=== PATIENT | male | born 1960 | race Caucasian/White ===

== ENCOUNTER 2023-08-05 09:06 | Outpatient (OUT) | payer MEDICARE, SELFPAY ==
--- NOTE | 2023-08-05 12:14 | CA_ITS ---
Patient: ABHISHEK HERMOSILLO Exam Date: 08/05/2023 : 1960 Gender:M Ordering : DR FAISAL HUGGINS M.D. Admission #: [id number] Family : Order #: [id number] CLICK HERE TO VIEW EXAM ECHOCARDIOGRAM REPORT PROCEDURE: CA ECHO DOPPLER COMPLETE INDICATIONS: Chronic CHF COMPARISON: None. DESCRIPTION: COMPLETE ECHOCARDIOGRAM Real-time transthoracic echocardiography with 2D, M-mode, spectral and color flow Doppler performed. QUALITY: Technical quality was good. LEFT VENTRICLE: Normal chamber size. Normal left ventricular wall thickness. LV EF: Global left ventricular systolic function is mildly reduced and estimated to be 40 to 45%. The distal two thirds of the inferoseptal and inferior wall are hypokinetic. DIASTOLIC: Grade 2, moderate diastolic dysfunction. ATRIAL SEPTUM: Inadequately seen. LEFT ATRIUM: Mild dilatation. RIGHT ATRIUM: Normal chamber size. RIGHT VENTRICLE: Normal chamber size. Normal right ventricular systolic function. TRICUSPID VALVE: Normal mobility and thickness. Mild regurgitation. No evidence of pulmonary hypertension. RVSP 33mmHg MITRAL VALVE: Normal mobility and thickness. No evidence of mitral valve stenosis. There is no mitral annular calcification. Mild to moderate mitral regurgitation. AORTIC VALVE: Normal trileaflet appearance. Mildly calcified aortic valve. Normal leaflet mobility. No evidence of aortic valve stenosis. Trivial aortic regurgitation. AORTIC ROOT: Normal diameter and appearance. PULMONIC VALVE: Normal thickness and mobility. No stenosis. Trivial regurgitation. PERICARDIUM: No evidence of pericardial effusion. IVC: Collapses with inspirations. Normal size. CONCLUSION: 1. Global left ventricular systolic function is mildly reduced and estimated to be to 40-45%; segmental wall motion abnormalities are seen 2. The right ventricle is normal size and systolic function 3. The left atrium is enlarged 4. Grade 2, moderate diastolic dysfunction 5. Mild tricuspid regurgitation 6. Mild to moderate mitral regurgitation Adult Echocardiography Procedure Report Left Ventricle LVEDD (3.7 - 5.6 cm): 4.31 cm LVESD (2.2 - 4.0 cm): 3.20 cm LVIVS thickness (0.6 - 1.2 cm): 1.03 cm LVPW thickness (0.5 - 1.0 cm): 0.77 cm e': 0.08 m/s E - e': 9.47 LVOT Max Gradient: 2.53 mm[Hg] LVOT Area (cm2): 0.80 m/s Peak Velocity (LVOT): 0.80 m/s Mean Velocity (LVOT): 0.46 m/s LVOT Diameter 1.92 cm Left Atrium LA Volume Index (2D A2C): 36.19 ml/m2 Left Atrium Systolic Dimension: 5.43 cm Mitral Valve MV E to A Ratio: 0.94 Mitral Valve A-Wave Peak Velocity: 0.81 m/s Mitral Valve E-Wave Peak Velocity: 0.76 m/s Right Ventricle RV Internal Diastolic Dimension: 2.72 cm Aorta AO Root Diam: 3.65 cm Ascending Ao Diam: 2.96 cm Aortic Valve AoV Area (Peak Trino): 1.91 cm2, 1.91 cm2 AoV Area (VTI): 1.93 cm2, 1.93 cm2 Peak Velocity(Antegrade Flow): 1.20 m/s Peak Gradient(Antegrade Flow): 5.76 mm[Hg] Mean Velocity(Antegrade Flow): 0.84 m/s Mean Gradient(Antegrade Flow): 3.19 mm[Hg] Velocity Time Integral: 30.73 cm Tricuspid Valve Peak Velocity (Regurgitant Flow): 2.74 m/s, 2.35 m/s, 2.42 m/s Pulmonic Valve Mean Gradient: 1.52 mm[Hg] Mean Velocity: 0.59 m/s Peak Velocity: 0.74 m/s, 0.71 m/s Peak Gradient: 2.01 mm[Hg], 2.21 mm[Hg] Right Atrium Right Atrium Systolic Pressure: 11.04 ml, 11.04 ml Dictated by: Martha Terrazas M.D. on 08/05/2023 at 12:49 Approved by: Martha Terrazas M.D. on 08/05/2023 at 12:54
== END 2023-08-05 09:07 | disposition home or self-care (01) ==
LOC: CARD 09:07
PROVIDERS: PCP Family Medicine; Visit Provider Internal Medicine Interventional Cardiology
DX: I50.22 Chronic systolic (congestive) heart failure (principal); I95.9 Hypotension, unspecified; I08.1 Rheumatic disorders of both mitral and tricuspid valves
CPT/HCPCS: 93306; 93356